=== PATIENT | female | born 1995 | race Caucasian/White ===

== ENCOUNTER 2018-06-05 17:29 | Emergency (ER) | payer MEDICAID ==
[~2018-06-05] VITALS: Ht 167.6 cm; Wt 66.5 kg
[2018-06-05 17:31] VITALS: BP 111/81
[2018-06-05] MEDS ORDERED: CARBAMIDE PEROXIDE EAR DROPS 6.5%, 15ML ONE (18:32)
== END 2018-06-05 20:04 | disposition home or self-care (01) ==
LOC: ED 20:00
DX: H61.23 Impacted cerumen, bilateral (principal)
CPT/HCPCS: 69209; 99282

== ENCOUNTER 2018-07-16 18:43 | Emergency (ER) | payer MEDICAID ==
[~2018-07-16] VITALS: Ht 170.2 cm; Wt 67.5 kg
[2018-07-16 18:55] VITALS: BP 109/71
[2018-07-16] MEDS ORDERED: ONDANSETRON ODT 4 MG ONE (19:35)
[2018-07-16 19:58] LABS: ALANINE AMINOTRANSFERASE 18 U/L (12-78); ALBUMIN 4.1 g/dL (3.4-5.0); ANION GAP 9 mmol/L (5-15); CALCIUM 8.4 mg/dL (8.5-10.1); CHLORIDE 106 mmol/L (98-107); CREATININE 0.66 mg/dL (0.55-1.02)
[2018-07-16 20:00] LABS: ALKALINE PHOSPHATASE 94 U/L (45-117); BILIRUBIN,TOTAL 2.5 mg/dL (0.2-1.0); TOTAL PROTEIN 7.7 g/dL (6.4-8.2)
[2018-07-16] MEDS ORDERED: ONDANSETRON ODT 4 MG PO ONE (20:00)
[2018-07-16 20:16] LABS: HCG UR SG 1.012 (1.003-1.030); MICROSCOPIC AUTO
[2018-07-16 20:27] LABS: CULTURE INDICATED? YES
[2018-07-16 20:34] LABS: MEAN CORPUSCULAR HEMOGLOBIN 20.1 pg (27.0-34.8); MEAN CORPUSCULAR HGB CONC 32.3 g/dL (32.4-35.8); MEAN CORPUSCULAR VOLUME 62.5 fL (80-100); MEAN PLATELET VOLUME 10.5 fL (7.4-10.4); PLATELET COUNT 157 x10^3/uL (130-400); RED BLOOD COUNT 6.09 x10^6/uL (3.82-5.3); RED CELL DISTRIBUTION WIDTH 16.9 % (9.6-15.2)
[2018-07-16] MEDS ORDERED: PROMETHAZINE 25 MG/ML, 1ML ONE (20:56)
[2018-07-16] MEDS ORDERED: PROMETHAZINE 25 MG/ML, 1ML IM ONE (21:00)
[2018-07-16 21:11] LABS: BASOPHILS # (AUTO) 0.02 x10^3/uL (0-0.1); BASOPHILS % (AUTO) 0 % (0-1); EOSINOPHILS # (AUTO) 0.06 x10^3/uL (0-0.4); EOSINOPHILS % (AUTO) 1 % (1-7); LYMPHOCYTES # (AUTO) 2.35 x10^3/uL (1-3.4); LYMPHOCYTES % (AUTO) 23 % (22-44); MD MORPH REVIEW ONLY; MONOCYTES % (AUTO) 7 % (2-9); NEUTROPHILS # (AUTO) 7.03 x10^3/uL (1.8-6.8); NEUTROPHILS % (AUTO) 69 % (42-75)
[2018-07-16 21:13] LABS: ANISOCYTOSIS 2+
[2018-07-16 21:14] LABS: HYPOCHROMIA 1+; MICROCYTOSIS 2+; OVALOCYTES 1+
[2018-07-16 21:15] LABS: POLYCHROMASIA 1+; TEAR DROPS 1+
[2018-07-16 21:16] LABS: <PLATELET ESTIMATE> ADEQUATE
[2018-07-16 21:17] LABS: LARGE PLATELETS 1+
== END 2018-07-16 21:55 | disposition home or self-care (01) ==
LOC: ED 21:38
DX: G89.29 Other chronic pain (principal); R10.13 Epigastric pain
CPT/HCPCS: 36415; 80053; 81001; 81025; 83690; 85025; 86677; 87086; 96372; 99284; J2550; Q0162